=== PATIENT | female | born 1995 | race Caucasian/White ===

== ENCOUNTER 2021-07-08 22:15 | Emergency (ER) | payer OTHER ==
[~2021-07-08] VITALS: Ht 157.5 cm; Wt 52.0 kg
--- NOTE | 2021-07-08 22:27 | PHYS DOC ---
Adult General HPI HPI Patient is a 25-year-old female who presents with a chief complaint of positive test at home, and cramping. States that her last menstrual cycle ended about 6 weeks ago and was normal for her. States this is her second child. States her first was uncomplicated and baby was vaginal delivery. Denies any recent traumas, travels, illnesses, fevers, chest pain, shortness of breath, other abdominal pain, nausea, vomiting, dysuria, hematuria, blood in the stool or diarrhea. Review of Systems Review of Systems Review of systems otherwise unremarkable except noted in HPI Physical Exam Physical Exam Constitutional: Well developed, well nourished, no acute distress, non-toxic appearance. [] HENT: Normocephalic, atraumatic, bilateral external ears normal, oropharynx moist, no oral exudates, nose normal. [] Eyes: conjunctiva normal, no discharge. [] Neck: Normal range of motion, no tenderness, supple, no stridor. [] Cardiovascular:Heart rate regular rhythm, no murmur [] Lungs & Thorax: Bilateral breath sounds clear to auscultation [] Abdomen: soft, mild right adnexal tenderness, no masses, no pulsatile masses. : Vaginal exam, cervical os closed, a small amount of red discharge mild right adnexal tenderness [] Skin: Warm, dry, no erythema, no rash. [] Back: No tenderness, no CVA tenderness. [] Extremities: No tenderness, no cyanosis, no clubbing, ROM intact, no edema. [] Neurologic: Alert and oriented X 3, normal motor function, normal sensory function, no focal deficits noted. [] Psychologic: Affect normal, judgement normal, mood normal. [] EKG EKG [] Radiology/Procedures Radiology/Procedures [] INDICATION: Reason: , ab pain, no ultrasound / Spl. Instructions: / History: COMPARISON: None. TECHNIQUE: Grayscale and color ultrasound images uterus and adnexa. Transvaginal images obtained FINDINGS: Uterus: 86 x 57 x 43 mm. There is some complex debris within the endometrium. This measures up to about 13 mm. There is a circular structure measuring about 3 mm within the endometrial stripe within this region of complex material Right Ovary: 20 x 15 x 14 mm. Left Ovary: 34 x 20 x 18 mm. Vascular flow identified to bilateral ovaries. Masslike structure within the right adnexa measuring 14 x 12 x 10 mm adjacent to the right ovary with some complex fluid seen within the area. IMPRESSION: * Within the endometrial stripe there is some heterogenous material seen which could be secondary to either some complex fluid such as blood within the area or an abnormal gestational sac with internal debris throughout. * Within the right adnexa there is a masslike structure identified as well as some heterogenous fluid. Differential considerations would include both ectopic with some adjacent blood but other adnexal masses could have this appearance as well. Correlation with hCG is needed given that ectopic is within the differential for this finding Electronically signed by: Mati Carrillo MD (07/09/2021 12:37 AM) DESKTOP- [id number] Heart Score C/O Chest Pain: No Risk Factors: Risk Factors: DM, Current or recent (<one month) smoker, HTN, HLP, family history of CAD, obesity. Risk Scores: Risk Factors: DM, Current or recent (<one month) smoker, HTN, HLP, family history of CAD, obesity. Course & Med Decision Making Course & Med Decision Making Patient is a 25-year-old G2, P1, female presents with positive home test and cramping Vital signs notable for tachycardia. Physical exam noted above. Patient given Tylenol and Benadryl. Laboratory analysis notable for O+ blood type, asymptomatic bacteriuria treated with Keflex, beta hCG of 335 Transvaginal ultrasound notable for heterogenous material in the endometrial stripe that appears like complex fluid such as blood or an abnormal gestational sac and in right adnexa there is a mass identified with some heterogenous fluid suggestive of ectopic . Discussed all findings with patient and recommended transfer to [facility] unit for [facility]/surgical versus medical evaluation and treatment for her ectopic . Patient grateful, verbalized understanding and agreed with plan of transfer and admission to [facility] as they did have beds available in patient's first choice of [facility], second choice of [facility] we re both full. [] Dragon Disclaimer Dragon Disclaimer This electronic medical record was generated, in whole or in part, using a voice recognition dictation system. Departure Departure: Impression: Primary Impression: Ectopic Disposition: SHORT TERM HOSPITAL Admitting Physician: Other Condition: STABLE Referrals: AMY SARAVIA (PCP) JOHN FLOYD MD Jul 08, 2021 22:27
[2021-07-08 23:30] LABS: BILIRUBIN,URINE NEG (NEG); CLARITY,URINE CLEAR; COLOR,URINE YELLOW; GLUCOSE,URINE NEG (NEG); NITRITE,URINE NEG (NEG); UROBILINOGEN,URINE 0.2 mg/dL (0.2 mg/dL)
[2021-07-08 23:31] LABS: BACTERIA,URINE FEW /HPF (0-FEW); SQUAMOUS EPITHELIAL CELL,UR FEW /LPF
[2021-07-08] MEDS ORDERED: ACETAMINOPHEN 500 MG TABLET PO ONE (23:45)
[2021-07-08] MEDS ORDERED: diphenhydrAMINE HCL 25 MG CAPSULE PO ONE (23:45)
[2021-07-09] MEDS ORDERED: CEPHALEXIN 250 MG CAPSULE PO ONE
--- NOTE | 2021-07-09 00:39 | RAD ---
INDICATION: Reason: , ab pain, no ultrasound / Spl. Instructions: / History: COMPARISON: None. TECHNIQUE: Grayscale and color ultrasound images uterus and adnexa. Transvaginal images obtained FINDINGS: Uterus: 86 x 57 x 43 mm. There is some complex debris within the endometrium. This measures up to about 13 mm. There is a circ ular structure measuring about 3 mm within the endometrial stripe within this region of complex mater ial Right Ovary: 20 x 15 x 14 mm. Left Ovary: 34 x 20 x 18 mm. Vascular flow identified to bilateral ovaries. Masslike structure within the right adnexa measuring 14 x 12 x 10 mm adjacent to the right ovary with some complex fluid seen within the area. IMPRESSION: * Within the endometrial stripe there is some heterogenous material seen which could be secondary t o either some complex fluid such as blood within the area or an abnormal gestational sac with interna l debris throughout. * Within the right adnexa there is a masslike structure identified as well as some heterogenous flui d. Differential considerations would include both ectopic with some adjacent blood but othe r adnexal masses could have this appearance as well. Correlation with hCG is needed given that ectopi c is within the differential for this finding Electronically signed by: Mati Carrillo MD (07/09/2021 12:37 AM) [id number]
[2021-07-09 01:41] LABS: BASO # 0.1 x10^3/uL (0.0-0.2); BASO % 1 % (0-3); CALCIUM 8.8 mg/dL (8.5-10.1); CREATININE 0.6 mg/dL (0.6-1.0); EOS # 0.1 x10^3/uL (0.0-0.7); EOS % 1 % (0-3); GFR 122.8; HEMATOCRIT 39.6 % (36.0-47.0); HEMOGLOBIN 13.6 g/dL (12.0-15.5); LYMPH # 2.5 x10^3/uL (1.0-4.8); LYMPH % 22 % (24-48); MEAN CORPUSCULAR HEMOGLOBIN 32 pg (25-35); MEAN CORPUSCULAR HGB CONC 34 g/dL (31-37); MEAN CORPUSCULAR VOLUME 92 fL (79-100); MONO # 0.5 x10^3/uL (0.0-1.1); MONO % 4 % (0-9); NEUT # 8.3 x10^3uL (1.8-7.7); NEUT % 73 % (31-73); PLATELET COUNT 362 x10^3/uL (140-400); POTASSIUM 3.5 mmol/L (3.5-5.1); RED BLOOD COUNT 4.29 x10^6/uL (3.50-5.40); RED CELL DISTRIBUTION WIDTH 12.5 % (11.5-14.5); WHITE BLOOD COUNT 11.4 x10^3/uL (4.0-11.0)
[2021-07-09] MEDS ORDERED: MORPHINE SULFATE 2 MG/ML DISP.SYRIN. ONE (02:43)
[2021-07-09] MEDS ORDERED: MORPHINE SULFATE 2 MG/ML DISP.SYRIN. IV ONE (03:00)
[2021-07-09 03:44] VITALS: BP 120/77
--- NOTE | 2021-07-11 11:40 | NUR ---
PT NOTIFIED OF COVID RESULTS
== END 2021-07-09 04:08 | disposition short-term general hospital (02) ==
LOC: ER 22:15
DX: O00.90 Unspecified ectopic pregnancy without intrauterine pregnancy (principal); Z20.822 Contact with and (suspected) exposure to COVID-19
CPT/HCPCS: 36415; 76817; 80048; 81001; 81025; 84702; 85025; 86850; 86900; 86901; 87426; 96374; 99285; C9803; J2270; Q0163; U0003

== ENCOUNTER → 2021-07-10 | Outpatient (CLI) | payer OTHER ==
[2021-07-09 03:44] VITALS: BP 120/77
[2021-07-10 16:14] LABS: BASO # 0.1 x10^3/uL (0.0-0.2); BASO % 1 % (0-3); EOS # 0.3 x10^3/uL (0.0-0.7); EOS % 4 % (0-3); HEMATOCRIT 36.5 % (36.0-47.0); HEMOGLOBIN 12.4 g/dL (12.0-15.5); LYMPH # 2.8 x10^3/uL (1.0-4.8); LYMPH % 37 % (24-48); MEAN CORPUSCULAR HEMOGLOBIN 31 pg (25-35); MEAN CORPUSCULAR HGB CONC 34 g/dL (31-37); MEAN CORPUSCULAR VOLUME 93 fL (79-100); MONO # 0.6 x10^3/uL (0.0-1.1); MONO % 8 % (0-9); NEUT # 3.7 x10^3uL (1.8-7.7); NEUT % 50 % (31-73); PLATELET COUNT 304 x10^3/uL (140-400); RED BLOOD COUNT 3.94 x10^6/uL (3.50-5.40); RED CELL DISTRIBUTION WIDTH 12.6 % (11.5-14.5); WHITE BLOOD COUNT 7.4 x10^3/uL (4.0-11.0)
== END ==
LOC: LAB 15:29
PROVIDERS: ATTEND Obstetrics & Gynecology
DX: O00.201 Right ovarian pregnancy without intrauterine pregnancy (principal)
CPT/HCPCS: 36415; 84702; 85025

== ENCOUNTER → 2021-07-12 | Outpatient (CLI) | payer OTHER ==
[2021-07-09 03:44] VITALS: BP 120/77
== END ==
LOC: LAB 14:30
PROVIDERS: ATTEND Obstetrics & Gynecology
DX: O00.201 Right ovarian pregnancy without intrauterine pregnancy (principal)
CPT/HCPCS: 36415; 84702

== ENCOUNTER → 2021-07-17 | Outpatient (CLI) | payer OTHER ==
[2021-07-09 03:44] VITALS: BP 120/77
== END ==
LOC: LAB 13:42
PROVIDERS: ATTEND Obstetrics & Gynecology
DX: O00.201 Right ovarian pregnancy without intrauterine pregnancy (principal)
CPT/HCPCS: 36415; 84702